=== PATIENT | male | born 1950 | race Hispanic/Latino ===

== ENCOUNTER 2023-02-02 10:13 | Emergency (ER) | payer BC, OTHER, SELFPAY ==
--- OUTSIDE RECORDS SUMMARY | 2023-02-02 10:16 | XMS REPORT | Continuity of Care Document ---
:1950 Author Organization [facility] t Address [address] [place] [address] [address] [place] [address] Care Team Providers Name Role Phone Silverio Placsencia MD Primary Care Physician Alejo DORADO, Geraldo Calderon Attending Clinician Lili Ramirez Attending Clinician Unavailable Provider , Not In System Attending Clinician Unavailable Silverio Plascencia MD Attending Clinician Payers Payer Name Policy Type Policy Number Effective Date Expiration Date S ource Problems This patient has no known problems. Allergies, Adverse Reactions, Alerts This patient has no known allergies or adverse reactions. Family History Family Member Diagnosis Comments Start Date Stop Date Source Paternal grandmother Pancreatic cancer [facility] Natural mother Pancreatic cancer Met [facility] Social History Social Habit Start Date Stop Date Quantity Comments Source [facility] Cigarettes smoked 2023-01-08 2023-01-[address] current (pack per 00:00:00 00:00:00 [facility] ) - Reported Cigarette 2023-01-08 2023-01-08 [facility] Tobacco use and 2023-01-08 2023-01-08 Smokeless [facility] exposure 00:00:00 00:00:00 tobacco non-user Hospital Alcohol intake 2023-01-08 2023-01-08 Current drinker [facility] 00:00:00 00:00:00 of alcohol Hospital (finding) History of Social 2023-01-08 2023-01-[address] function 00:00:00 00:00:00 Hospital Alcohol Comment 2023-01-08 2023-01-08 Consume 2 [facility] 00:00:00 00:00:00 glasses wine per Hospital month History of tobacco 1968-10-20 1992-07-12 Current smoker [facility] use 00:[facility]:00 00:00:00 Hospital Sex Assigned At [birth year] [facility] 00[facility] Smoking Status Start Date Stop Date Source Ex-smoker 2023-01-08 00:00:00 2023-01-08 00:00:00 [facility] Medications Ordered Filled Start Stop Current Ordering Indication Dosage Frequency Signature Comments Components Source Medication Medication Date Date Medication? Clinician (SIG) Name Name aspirin Yes [facility] (Parveen Low -28 st Dose 08:14: Hospita Aspirin) 81 27 l MG enteric coated tablet carvediloL Yes [facility] (COREG) -20 st 3.125 MG 00:00: Hospita tablet 00 l levothyroxi Yes [facility] ne [facility] (SYNTHROID) 00:00: Hospit a 50 mcg 00 l tablet losartan Yes [facility] (COZAAR) [facility] 100 MG 00:00: Hospita tablet 00 l pravastatin Yes [facility] (PRAVACHOL) 9-20 st 40 mg 00:00: Hospita tablet 00 l Xigduo XR 0 Yes [facility] 10-1,000 mg 9-20 st tablet, IR 00:00: Hospita & ER, 00 l biphasic 24hr OneTouch Yes [facility] Verio Flex 9-20 st meter misc 00:00: Hospita 00 l OneTouch 2022-0 Yes [facility] Verio test 9-[facility] st strips 00:00: Hospita strip test 00 l strips Vital Signs Vital Name Observation Time Observation Value Comments Source Systolic blood 2023-01-08 13:15:00 149 mm[Hg] [facility] pressure Diastolic blood 2023-01-08 13:15:00 83 mm[Hg] [facility] pressure Heart rate 2023-01-08 13:15:00 89 /min [facility] Body temperature 2023-01-08 13:15:00 36.44 Oksana [facility] Respiratory rate 2023-01-08 13:15:00 14 /min [facility] Body height 2023-01-08 13:15:00 172.7 cm [facility] Body weight 2023-01-08 13:15:00 96.163 kg [facility] BMI 2023-01-08 13:15:00 32.23 kg/m2 [facility] Oxygen saturation in 2023-01-08 13:15:00 92 /min [facility] Arterial blood by Pulse oximetry Procedures Procedure Date / Time Performed Performing Clinician Sourc e CT HEART SCAN PLUS W 2023-01-01 18:49:10 [facility] PHYSICIAN ORDER US VASCULAR SCREENING 2023-01-01 18:30:00 [facility] HEART SCAN PLUS US VASCULAR SCREENING 2023-01-01 00:00:00 Provider, Not In [facility] HEART SCAN PLUS System Plan of Care Planned Activity Planned Date Details Comments Source Future Scheduled 2023-01-30 Screening for [facility] Test 07:17:42 malignant neoplasm of colon (procedure) [code = 855898829] Future Scheduled 2023-01-30 Screening for [facility] Test 07:17:42 malignant neoplasm of colon (procedure) [code = 166723340] Future Scheduled 2023-01-30 Screening for [facility] Test 07:17:42 malignant neoplasm of colon (procedure) [code = 745551056] Future Scheduled 2023-01-30 65+ PNEUMOCOCCAL [facility] Test 07:17:42 VACCINE (1 - PCV) [code = 65+ PNEUMOCOCCAL VACCINE (1 - PCV)] Future Scheduled 2023-01-30 Hepatitis C screening [facility] Test 07:17:42 (procedure) [code = 127701290] Future Scheduled 2023-01-30 Screening for [facility] Test 07:17:42 malignant neoplasm of colon (procedure) [code = 637009473] Future Scheduled 2023-01-30 Screening for [facility] Test 07:17:42 malignant neoplasm of colon (procedure) [code = 503196808] Future Scheduled 2023-01-30 SHINGLES VACCINES ([address] [facility] Test 07:17:42 of 2) [code = SHINGLES VACCINES (1 of 2)] Future Scheduled 2023-01-30 RSV VACCINES > 60 YR [facility] Test 07:17:42 (1 - 1-dose 60+ series) [code = RSV VACCINES > 60 YR (1 - 1-dose 60+ series)] Future Scheduled 2023-01-30 COVID-19 VACCINE (4 - [facility] Test 07:17:42 season) [code = COVID-19 VACCINE ( season)] Future Scheduled 2023-01-30 INFLUENZA VACCINE (#1) [facility] Test 07:17:42 [code = INFLUENZA VACCINE (#1)] Encounters Start End Encounter Admission Attending Care Care Encounter Source Date/Time Date/Time Type Type Clinicians Facility Department ID 2023-01-08 2023-01-08 Office Alejo 1.2.840.1 [id number] [facility] 08:30:00 09:34:13 Visit Geraldo Calderon [id number] 3.430.2.7 Hospit a .3.907568 l .8 2023-01-08 2023-01-08 Telephone Alejo 1.2.840.1 [id number] [facility] 00:00:00 00:00:00 Geraldo Calderon [id number] 3.430.2.7 Hospit a .3.319509 l .8 2023-01-08 2023-01-08 Outpatient ALEJO [facility] [id number] [address] [place] 00:00:00 00:00:[address] 2023-01-02 2023-01-02 Telephone James 1.2.840.1 [id number] [facility] 00:00:00 00:00:[address] 3.430.2.7 Hospit a .3.813473 l .8 2023-01-02 2023-01-02 Orders Tammi 1.2.840.1 [id number] [facility] 00:00:00 00:00:00 Only Not In 19467.1.[address] System 3.430.2.7 Hospit a .3.075814 l .8 2023-01-01 2023-01-01 [facility], 1.2.840.1 [id number] [facility] 12:31:07 23:59:00 Encounter Silverio 47744.1.[address] 3.430.2.7 Hospit a .3.950479 l .8 2023-01-01 2023-01-01 [facility], 1.2.840.1 [id number] [facility] 12:31:00 12:31:00 Encounter Silverio [address]334.1.[address] 3.430.2.7 Hospit a .3.141712 l .8 2023-01-01 2023-01-01 Outpatient [facility] [id number] [address] [place] 00:00:00 00:00:00 SILVERIO [address] 2023-01-01 2023-01-01 Outpatient [facility] [id number] [address] [place] 00:00:00 00:00:00 SILVERIO [address] 2022-12-24 2022-12-24 Transcribe [facility] 1.2.840.1 [id number] [facility] 00:00:00 00:00:00 Orders Silverio [address]494.1.[address] 3.430.2.7 Hospit a .3.277266 l .8 Results This patient has no known results.
[2023-02-02 10:53] LABS: Hematocrit 43.1 % (39.6-49.0); Lymphocytes % 20.8 % (15.3-44.8); MCV 84.4 fL (80-100); MPV 7.1 fL (7.6-11.3); Platelets 272 thou/uL (152-406); RBC Red Blood Cell Count 5.11 M/uL (4.33-5.43)
[2023-02-02 10:54] LABS: Absolute Lymphocytes (CBC) 2.3 K/uL (0.7-4.9)
[2023-02-02 11:11] LABS: Potassium 3.8 mEq/L (3.5-5.1)
[2023-02-02 11:14] LABS: Troponin High Sensitivity 330.4 pg/mL (<58.9)
[2023-02-02] MEDS ORDERED: ASPIRIN 325 MG TAB ONE (11:56)
--- NOTE | 2023-02-02 13:07 | RAD REPORT ---
EXAM DESCRIPTION: CT - Chest For Pe Angio - 02/02/2023 11:52 am CLINICAL HISTORY: SOB COMPARISON: No comparisons TECHNIQUE: Thin axial CT images of the chest were obtained following administration of 100 mL mL Iso aida 370 IV contrast. Multiplanar reconstructions, and maximum intensity projection reconstructions we re generated and reviewed. Exam utilizes a protocol for optimal evaluation of pulmonary arterial tree . All CT scans are performed using dose optimization technique as appropriate and may include automated exposure control or mA/KV adjustment according to patient size. FINDINGS: Right hilar and superior mediastinal mass, measuring up to 5.7 x 4.8 cm at its superior as pect, occluding the right upper lobe bronchial branches, and markedly narrowing the right pulmonary a rtery branches posteriorly with possible occlusion of some of the anterior upper lobe branches. There is contiguous right upper lobe consolidation, difficult to assess whether it has any masslike compon ents given the early timing of contrast, although there appears to be a crescentic masslike anterior right upper lobe subpleural opacity measuring 7.3 x 3.5 cm. Other bulky mediastinal lymph nodes including an infrahilar 4.7 x 3.1 cm ronnie mass, subcarinal 3.7 x 2.5 cm mass, and other mildly enlarged pretracheal, AP window, prevascular, and left hilar lymph nod es, largest measuring 12 millimeter in short axis in the prevascular zone, and 13 millimeter in short axis in the left hilum. Pulmonary arteries otherwise show no filling defects or other suspicious finding. No acute or signifi cant aorta findings. No pneumothorax. A large right pleural effusion. Additional dependent airspace opacification in the r ight lower lobe could be atelectatic. No chest wall mass or abnormal axilliary lymphadenopathy. Evaluation of the upper abdominal structures shows no suspicious abnormalities. No suspicious osseous lesion. Mass effect upon the superior vena cava. The trachea is deviated to the left. Mild pericardi al effusion. IMPRESSION: No evidence of acute central pulmonary emboli. Right hilar mass contiguous with upper mediastinal masslike soft tissue density or bulky adenopathy, and possibly contiguous with masslike soft tissue densities in the right upper lobe. Additional perip heral subpleural anterior right upper lobe masslike opacity as detailed above. Bulky adenopathy throu ghout the mediastinum and right infrahilar region, as well as small lymph nodes throughout the remain isabel of the mediastinum and left hilum. Findings suggest malignancy, either of along or ronnie origin. Given the appearance of marked narrowin g of branches of the right pulmonary artery to the upper lobe, lymphoma should be considered. Large right pleural effusion with additional dependent right lower lobe airspace opacification. Other findings as detailed above.
--- NOTE | 2023-02-02 13:28 | EDPHYS ---
Physician Documentation [facility] Name: Igor Vargas Age: 72 yrs Sex: Male : 1950 Arrival Date: 02/02/2023 Time: 10:13 Bed 4 Private MD: ED Physician Oziel Dejesus HPI: 02/02 10:31 This 72 yrs old Male presents to ER via Ambulatory with complaints of ec2 Shortness Of Breath. 10:31 Patient arrives today due to concern for shortness of breath. Patient complains of ec2 orthopnea, states that sitting upright helps improve her shortness of breath. Reports no history of heart failure, not on a diuretic, states he has had a previous CT of the heart that showed no significant abnormalities. States that he has a primary care doctor and was told to come to the ED to evaluate for PE. Patient reports occasional exertional shortness of breath, denies any lower extremity edema reports no chest pain. Patient reports he is not on a blood thinner. Patient reports history of hypertension as well as diabetes. Patient states that he has had outpatient work-up and was told he has a lung nodule as well as lymphadenopathy. . Historical: - PMHx: 10:24 Diabetes mellitus; Hypertensive disorder; Hypercholesterolemia; iw - Immunization history:: Adult Immunizations up to date. - Social history:: Smoking status: Patient/guardian denies using tobacco. ROS: 10:31 Constitutional: sob ec2 Exam: 10:31 Constitutional: GEN: NAD Head: atraumatic Eyes: EOMI Ears: External ears are ec2 normal. CV: regular rate, no lower extremity edema LUNGS: no respiratory distress, no focal areas of deficits ABD: non-distended SKIN: no evidence of rashes MSK: no evidence of trauma NEURO: moves all extremities equally Vital Signs: 10:20 BP 157 / 93; Pulse 87; Resp 16; Temp 97.9; Pulse Ox 97% on R/A; iw 10:30 BP 159 / 92; Pulse 87; Resp 18; Pulse Ox 95% ; ko1 11:00 BP 151 / 86; Pulse 82; Resp 18; Pulse Ox 96% ; ko1 11:30 BP 150 / 89; Pulse 81; Resp 16; Pulse Ox 96% ; ko1 12:00 BP 164 / 80; Pulse 86; Resp 16; Pulse Ox 96% ; ko1 13:30 BP 154 / 87; Pulse 84; Resp 16; Pulse Ox 97% ; db MDM: 10:19 Patient medically screened. ec2 10:31 ED course: Patient arrives today due to concern for progressive shortness of breath. ec2 Examination remarkable for well-appearing nontoxic dividual was otherwise in no acute distress. Will obtain lab work, EKG, CT scan of the chest. Currently considered process such as atypical ACS, CHF, PE. . 10:51 ED course: EKG independently reviewed and interpreted by me, shows normal sinus rhythm, ec2 rate of 82, no acute ST segment elevations, intervals are pertinent for QTc prolongation with a QTc of 560.. 11:28 ED course: Patient's metabolic profile is reassuring with slight hyperglycemia noted at ec2 200, CBC shows reassuring blood counts, BNP minimally elevated at 930, troponin markedly elevated at 330. . 11:28 ED course: EKG does not have any evidence of acute ischemia, will give the patient a ec2 full dose of aspirin.. 13:12 ED course: CT scan of the chest shows likely malignancy, also shows large right-sided ec2 pleural effusion with associated opacification. I will give the patient antibiotics for possible superimposed infectious process ongoing. . 13:31 Data reviewed: vital signs. ec2 02/02 10:30 Order name: Basic Metabolic Panel; Complete Time: 11:15 ec2 02/02 10:30 Order name: CBC with Diff; Complete Time: 11:15 ec2 02/02 10:30 Order name: NT PRO-BNP; Complete Time: 11:15 ec2 02/02 10:30 Order name: Troponin HS; Complete Time: 11:15 ec2 02/02 10:30 Order name: CT Chest For PE Angio; Complete Time: 13:10 ec2 02/02 10:30 Order name: EKG; Complete Time: 10:31 ec2 02/02 10:30 Order name: Cardiac monitoring; Complete Time: 10:34 ec2 02/02 10:30 Order name: EKG - Nurse/Tech; Complete Time: :43 ec2 02/02 10:30 Order name: IV Saline Lock; Complete Time: 10:43 ec2 02/02 10:30 Order name: Labs collected and sent; Complete Time: 10:43 ec2 02/02 10:30 Order name: O2 Per Protocol; Complete Time: 10:34 ec2 02/02 10:30 Order name: O2 Sat Monitoring; Complete Time: 10:34 ec2 Administered Medications: 12:06 Drug: Aspirin PO 325 mg PO once Route: PO; ko1 14:27 Follow up: Response: No adverse reaction ko1 13:56 Drug: Rocephin IV 1 grams IV at calculated rate once; Given slow IV push per pharmacy ap3 instructions Route: IV; Rate: calculated rate; Site: right antecubital; 14:27 Follow up: Response: No adverse reaction; IV Status: Completed infusion; IV Intake: ko1 100ml 14:10 Drug: AZITHromycin IVPB 500 mg IVPB once over 1 hrs; (mix in 250 mL NS) Route: IVPB; ko1 Infused Over: 1 hrs; Site: right antecubital; Disposition Summary: 02/02/23 13:28 Discharge Ordered Condition: Stable ec2 Diagnosis - Mediastinal Mass ec2 - Pleural Effusion ec2 - Shortness of Breath ec2 - Troponinemia ec2 - Lung mass ec2 Discharge Instructions: - Discharge Summary Sheet ec2 - Shortness of Breath, Adult ec2 - Lung Mass ec2 Forms: - Medication Reconciliation Form ec2 - Thank You Letter ec2 - Antibiotic Education ec2 - Prescription Opioid Use ec2 - Patient Portal Instructions ec2 - Leadership Thank You Letter ec2 Signatures: Dispatcher [employer] Sunita Oseguera RN RN iw Prokisch, Amanda, RN RN ap3 Maris Lopez RN RN ko1 Oziel Dejesus MD MD ec2 Corrections: (The following items were deleted from the chart) 10:33 10:31 Patient arrives today due to concern for shortness of breath. Patient complains ec2 of orthopnea, states that sitting upright helps improve her shortness of breath. Reports no history of heart failure, not on a diuretic, states he has had a previous CT of the heart that showed no significant abnormalities. States that he has a primary care doctor and was told to come to the ED to evaluate for PE. Patient reports occasional exertional shortness of breath, denies any lower extremity edema reports no chest pain. Patient reports he is not on a blood thinner. Patient reports history of hypertension as well as diabetes.. ec2
--- NOTE | 2023-02-02 13:28 | ER ---
Nurse's Notes [facility] Name: Igor Vargas Age: 72 yrs Sex: Male : 1950 Arrival Date: 02/02/2023 Time: 10:13 Bed 4 Private MD: Diagnosis: Mediastinal Mass;Pleural Effusion;Shortness of Breath;Troponinemia ;Lung mass Presentation: 02/02 10:20 Chief complaint: Patient states: SOB , dyspnea going on for a month, got bad on iw , was sent by Dr. Plascencia , pain under right shoulder blade. Coronavirus screen: At this time, the client does not indicate any symptoms associated with coronavirus-19. Ebola Screen: Patient negative for fever greater than or equal to 101.5 degrees Fahrenheit, and additional compatible Ebola Virus Disease symptoms Patient denies exposure to infectious person. Patient denies travel to an Ebola-affected area in the 21 days before illness onset. No symptoms or risks identified at this time. Initial Sepsis Screen: Does the patient meet any 2 criteria? No. Patient's initial sepsis screen is negative. Does the patient have a suspected source of infection? No. Patient's initial sepsis screen is negative. Risk Assessment: Do you want to hurt yourself or someone else? Patient reports no desire to harm self or others. Onset of symptoms was January 31, 2023. 10:20 Method Of Arrival: Ambulatory iw 10:20 Acuity: LORETTA 3 iw Historical: - PMHx: 10:24 Diabetes mellitus; Hypertensive disorder; Hypercholesterolemia; iw - Immunization history:: Adult Immunizations up to date. - Social history:: Smoking status: Patient/guardian denies using tobacco. Screenin:30 [facility] ED Fall Risk Assessment (Adult) History of falling in the last 3 months, ko1 including since admission No falls in past 3 months (0 pts) Confusion or Disorientation No (0 pts) Intoxicated or Sedated No (0 pts) Impaired Gait No (0 pts) Mobility Assist Device Used No (0 pt) Altered Elimination No (0 pt) Score/Fall Risk Level 0 - 2 = Low Risk Oriented to surroundings, Maintained a safe environment, Educated pt \T\ family on fall prevention, incl call for assistance when getting out of bed, Assessed \T\ reinforced patient's understanding of fall precautions, Provided non-skid footwear, Hourly rounding (assess needs \T\ fall precautionary measures) done, Used ambulatory aids as needed (educated on \T\ assisted with), Used gait belt as appropriate. Abuse screen: Denies threats or abuse. Denies injuries from another. Nutritional screening: No deficits noted. Tuberculosis screening: No symptoms or risk factors identified. Assessment: 10:30 General: Appears in no apparent distress. comfortable, Behavior is calm, cooperative, ko1 appropriate for age. Pain: Denies pain. Neuro: No deficits noted. Cardiovascular: Rhythm is regular. Respiratory: Airway is patent Respiratory effort is even, unlabored, Breath sounds are clear bilaterally. Respiratory: Reports shortness of breath at rest. GI: No deficits noted. : No deficits noted. EENT: No deficits noted. Derm: No deficits noted. Musculoskeletal: No deficits noted. Vital Signs: 10:20 BP 157 / 93; Pulse 87; Resp 16; Temp 97.9; Pulse Ox 97% on R/A; iw 10:30 BP 159 / 92; Pulse 87; Resp 18; Pulse Ox 95% ; ko1 11:00 BP 151 / 86; Pulse 82; Resp 18; Pulse Ox 96% ; ko1 11:30 BP 150 / 89; Pulse 81; Resp 16; Pulse Ox 96% ; ko1 12:00 BP 164 / 80; Pulse 86; Resp 16; Pulse Ox 96% ; ko1 13:30 BP 154 / 87; Pulse 84; Resp 16; Pulse Ox 97% ; db ED Course: 10:16 Patient arrived in ED. mg5 10:19 Oziel Dejesus MD is Attending Physician. ec2 10:22 Triage completed. iw 10:24 Arm band placed on. iw 10:30 Patient has correct armband on for positive identification. Provided Education on: na. ko1 Pulse ox on. NIBP on. 10:30 Inserted saline lock: 22 gauge in right antecubital area, using aseptic technique. ko1 Blood collected. 10:44 Basic Metabolic Panel Sent. ko1 10:44 CBC with Diff Sent. ko1 10:44 NT PRO-BNP Sent. ko1 10:44 Troponin HS Sent. ko1 11:00 Maris Lopez, RN is Primary Nurse. ko1 11:54 CT Chest For PE Angio In Process Unspecified. EDMS 14:53 No provider procedures requiring assistance completed. IV discontinued, intact, ko1 bleeding controlled, No redness/swelling at site. Pressure dressing applied. Administered Medications: 12:06 Drug: Aspirin PO 325 mg PO once Route: PO; ko1 14:27 Follow up: Response: No adverse reaction ko1 13:56 Drug: Rocephin IV 1 grams IV at calculated rate once; Given slow IV push per pharmacy ap3 instructions Route: IV; Rate: calculated rate; Site: right antecubital; 14:27 Follow up: Response: No adverse reaction; IV Status: Completed infusion; IV Intake: ko1 100ml 14:10 Drug: AZITHromycin IVPB 500 mg IVPB once over 1 hrs; (mix in 250 mL NS) Route: IVPB; ko1 Infused Over: 1 hrs; Site: right antecubital; Medication: 10:30 VIS not applicable for this client. ko1 Intake: 14:27 IV: 100ml; Total: 100ml. ko1 Outcome: 13:28 Discharge ordered by . ec2 14:53 Discharged to home ambulatory, with family, ko1 14:53 Condition: improved 14:53 Discharge instructions given to patient, family, Instructed on discharge instructions, follow up and referral plans. Demonstrated understanding of instructions, follow-up care, 14:54 Patient left the ED. ko1 Signatures: Dispatcher [employer] Sunita Oseguera RN RN Sandi Sims RN RN ap3 Maris Lopez RN RN ko1 Roxy Velez RN RN [facility]5 Oziel Dejesus MD MD ec2 Corrections: (The following items were deleted from the chart) 10:24 10:20 Chief complaint: Patient states: SOB , dyspnea going on for a month, got bad on , was sent by Dr. Plascencia , pain under right shoulder blade iw
[2023-02-02] MEDS ORDERED: AZITHROMYCIN 500 MG INJ IVPB ONE (13:50)
[2023-02-02] MEDS ORDERED: NA CHLORIDE 0.9% 50 ML ONE (13:50)
[2023-02-02] MEDS ORDERED: NA CHLORIDE 0.9% 250 ML ONE (13:50)
[2023-02-02] MEDS ORDERED: CEFTRIAXONE 1000 MG/VIAL ONE (13:50)
--- NOTE | 2023-02-03 11:58 | EKG ---
Test Date: 2023-02-02 Test Time: 10:45:06 [place] Tester: ALICIA MEASUREMENT RESULTS: Intervals: Rate: 82 CO: 166 QRSD: 104 QT: 480 QTc: 560 [place]: P: 18 CO: 166 QRS: -33 T: 17 INTERPRETIVE STATEMENTS: Normal sinus rhythm Possible Left atrial enlargement Left axis deviation Nonspecific ST and T wave abnormality Prolonged QT Abnormal ECG No previous ECG available for comparison Electronically Signed On 02-03-23 11:54:33 CDT by Vinicius Pierre
== END 2023-02-02 14:54 | disposition home or self-care (01) ==
LOC: ER 10:13
DX: J90 Pleural effusion, not elsewhere classified (principal); J98.59 Other diseases of mediastinum, not elsewhere classified; R91.8 Other nonspecific abnormal finding of lung field; R77.8 Other specified abnormalities of plasma proteins; E11.9 Type 2 diabetes mellitus without complications; I10 Essential (primary) hypertension
CPT/HCPCS: 96365; 93005; 85025; 80048; 36415; 84484; 83880; 71275; 96375; 99284; Q9967; J7050; J0696

== ENCOUNTER 2023-02-17 20:10 | Emergency (ER) | payer OTHER ==
--- OUTSIDE RECORDS SUMMARY | 2023-02-17 20:13 | XMS REPORT | Continuity of Care Document ---
:1950 Author Organization [facility] t Address [address] [facility] [address] [place] [address] Care Team Providers Name Role Phone Mona Plascencia MD Primary Care Physician Jourdan Shelton MD Attending Clinician Brett Gomez MD Attending Clinician Hernesto Gonzalez MD Attending Clinician [phone] Renae Gonzalez MD Attending Clinician Larisa Medina MD Attending Clinician Provider, Unknown Attending Clinician Unavailable Jr Silver MD Attending Clinician Provider MD, Not In System Attending Clinician Unavailable Alejo DORADO, Geraldo Calderon Attending Clinician Lili Ramirez Attending Clinician Unavailable Mona Plascencia MD Attending Clinician HERNESTO GONZALEZ Admitting Clinician Unavailable Payers Payer Name Policy Type Policy Number Effective Date Expiration Date S ource Problems Condition Condition Condition Status Onset Resolution Last Treating Co mments Source Name Details Category Date Date Treatment Clinician Date Metastasis Metastasis Disease Active 2022-04 M ethodi to bone to bone 1-06 st 00:00: Hospita 00 l 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 Family History Family Member Diagnosis Comments Start Date Stop Date Source Natural mother Pancreatic cancer Met [facility] Paternal grandmother Pancreatic cancer [facility] Social History Social Habit Start Date Stop Date Quantity Comments Source Sexual orientation Method [facility] Alcohol intake 2023-02-16 2023-02-16 Current drinker Metho dist 00:00:00 00:00:00 of [facility] (finding) History of Social 2023-02-16 2023-02-[address] function 00:00:00 00:00:00 Hospital Cigarettes smoked 2023-01-08 2023-01-[address] current (pack per 00:00:00 00:00:00 Hospita l day) - Reported Cigarette 2023-01-08 2023-01-08 Sikh pack-years 00:00:00 00:00:00 Hospital Tobacco use and 2023-01-08 2023-01-08 Smokeless Sikh exposure 00:00:00 00:00:00 tobacco non-user [facility] Alcohol Comment 2023-01-08 2023-01-08 Consume 2 Sikh 00:00:00 00:00:00 glasses wine per Hospital month History of tobacco 1968-10-20 1992-07-12 Cigarette Smoker Sikh use 00:00:00 00:00:00 Hospital Sex Ass[birth year] At [birth year] Sikh 00:00:00 00:00:00 Hospital Smoking Status Start Date Stop Date Source Ex-smoker 2023-01-08 00:00:00 2023-01-[facility] Start Stop Current Ordering Indication Dosage Frequency Signature Comments Components Source Medication Medication Date Date Medication? Clinician (SIG) Name Name multivitami 2022-04 Yes 1{tbl} QD Take 1 Me thodi n tablet 1-[address] 15:10: mouth Hospita 03 daily. l vit 2022-04 Yes 1{tbl} QD Take 1 Methodi C/E/Zn/ole 1-[address] r/lutein/ze 15:10: mouth Hospi ta axan 03 daily. l (PRESERVISI ON AREDS-2 ORAL) cholecalcif 2022-04 Yes 1000U QD Take 1 Met hodi lashon, 1-[address] vitamin D3, 15:10: (1,000 Hosp [facility] 1,000 unit 03 Units l tablet total) by mouth daily. ascorbic 2022-04 Yes 100mg Q.5D Take 1 Method i acid, 1-[address] vitamin C, 15:10: (100 mg Hosp [facility] (vitamin C) 03 total) by l 100 MG mouth 2 tablet (two) times a day. ZINC ORAL 2022-04 Yes 30mg QD Take 30 mg Me thodi 1-[address] 15:10: daily. Hospita 03 Gummies l calcium 2022-04 Yes 1200mg Q.5D Take 1,200 Me thodi carbonate 1-[address] (CALCIUM 15:10: mouth 2 Hospit a 600 ORAL) 03 (two) l times a day. aspirin 2022-04 Yes Methodi (Parveen Low 04 st Dose 15:10: Hospita Aspirin) 81 54 l MG enteric coated tablet metoprolol 2022-04- Yes 25mg Q.5D Take 1 Meth sarah tartrate 04-16 tablet (25 st (LOPRESSOR) 00:00: 05:59 mg total) Hospita 25 mg 00 :00 by mouth 2 l tablet (two) times a day for 30 days. ondansetron 2022-04- Yes [id number] 8mg Q8H Dissolve 1 Methodi ODT 04-13 tablet (8 st (ZOFRAN-ODT 00:00: 05:59 mg total) Hospita ) 8 MG 00 :00 on the l disintegrat tongue ing tablet every 8 (eight) hours as needed for nausea or vomiting for up to 30 days. prochlorper 2022-04- Yes 5mg Q6H Take 1 Met hodi azine 04-13 tablet (5 st (Compazine) 00:00: 05:59 mg total) Hospita 5 MG tablet 00 :00 by mouth l every 6 (six) hours as needed for nausea or vomiting for up to 30 days. aspirin 0 Yes Methodi (Parveen Low - st Dose 08:14: Hospita Aspirin) 81 27 l MG enteric coated tablet carvediloL 0 Yes Methodi (COREG) -20 st 3.125 MG 00:00: Hospita tablet 00 l levothyroxi 0 Yes Method i ne 9-20 st (SYNTHROID) 00:00: Hospit a 50 mcg 00 l tablet losartan 0 Yes Methodi (COZAAR) 12-31 st 100 MG 00:00: Hospita tablet 00 l pravastatin 0 Yes Method i (PRAVACHOL) 12-31 st 40 mg 00:00: Hospita tablet 00 l Xigduo XR 0 Yes Methodi 10-1,[address] tablet, IR 00:00: Hospita & ER, 00 l biphasic 24hr OneTouch 0 Yes Methodi Verio Flex 9-20 st meter misc 00:00: Hospita 00 l OneTouch 0 Yes Methodi Verio test -20 st strips 00:00: Hospita strip test 00 l strips levothyroxi 0 Yes 25ug QD Take 25 Met hodi ne 9-[address] (SYNTHROID) 00:00: mouth Hospi ta 50 mcg 00 every l tablet morning. pravastatin 0 Yes 40mg QD Take 1 Meth sarah (PRAVACHOL) 9-20 tablet (40 st 40 mg 00:00: mg total) Hospita tablet 00 by mouth l daily. OneTouch 0 Yes Methodi Verio Flex 9-20 st meter misc 00:00: Hospita 00 l OneTouch 2022-0 Yes Methodi Verio test 9-20 st strips 00:00: Hospita strip test 00 l strips carvediloL 2022-0 2022- No 3.125mg Q.5D Take 1 M ethodi (COREG) 12-31 11-[address] 3.125 MG 00:00: 00:00 (3.125 mg Hos janet tablet 00 :00 total) by l mouth 2 (two) times a day with meals. losartan 2022-0 2023- No 100mg QD Take 1 Metho di (COZAAR) 9-20 11-[address] 100 MG 00:00: 00:00 (100 mg Hospita tablet 00 :00 total) by l mouth daily. Xigduo XR 2022- No QD daily. Metho di 10-1,000 mg 12-31 st tablet, IR 00:00: 00:00 Hospit a & ER, 00 :00 l biphasic 24hr Vital Signs Vital Name Observation Time Observation Value Comments Source Systolic blood 2023-02-16 20:21:00 175 mm[Hg] Method ist Hospital pressure Diastolic blood 2023-02-16 20:21:00 82 [facility]Hg[facility] Heart rate 2023-02-16 20:21:00 85 /min [facility] Body temperature 2023-02-16 20:21:00 36.83 Oksana [facility] Respiratory rate 2023-02-16 20:21:00 17 /min [facility] Body height 2023-02-16 20:21:00 172.7 cm [facility] Body weight 2023-02-16 20:21:00 95.482 kg [facility] BMI 2023-02-16 20:21:00 32.01 kg/m2 [facility] Oxygen saturation in 2023-02-16 20:21:00 96 /min [facility] Arterial blood by Pulse oximetry Systolic blood 2023-01-08 13:15:00 149 mm[Hg] Method [facility] Hospital pressure Diastolic blood 2023-01-08 13:15:00 83 mm[Hg] [facility] pressure Heart rate 2023-01-08 13:15:00 89 /min [facility] Body temperature 2023-01-08 13:15:00 36.44 Oksana [facility] Respiratory rate 2023-01-08 13:15:00 14 /min [facility] Body height 2023-01-08 13:15:00 172.7 cm [facility] Body weight 2023-01-08 13:15:00 96.163 kg [facility] BMI 2023-01-08 13:15:00 32.23 kg/m2 [facility] Oxygen saturation in 2023-01-08 13:15:00 92 /min [facility] Arterial blood by Pulse oximetry Procedures Procedure Date / Time Performing Clinician Source Performed POC GLUCOSE 2023-02-14 17:51:00 Renae Gonzalez spital XR CHEST 1 VW PORTABLE 2023-02-14 14:36:27 Camron Ruvalcaba [facility] POC GLUCOSE 2023-02-14 13:26:00 Renae Gonzalez Ho spital PHOSPHORUS LEVEL 2023-02-14 09:24:[address] [facility] MAGNESIUM LEVEL 2023-02-14 09:24:00 [facility] WITH PLATELET AND 2023-02-14 09:24:00 Marquise Monique [facility] COMPREHENSIVE METABOLIC 2023-02-14 09:24:00 Marquise Monique [facility] ESTIMATED GFR 2023-02-14 09:24:00 Renae Gonzalez Ho spital POC GLUCOSE 2023-02-14 02:31:00 Renae Gonzalez Ho spital PLACEMENT OLIVE SHUNT 2023-02-13 23:30:00 [facility] 2023-02-13 22:08:00 Renae Gonzalez spital XR CHEST 1 VW PORTABLE 2023-02-13 20:59:35 Live [facility] Rj BASIC METABOLIC PANEL 2023-02-13 20:41:00 Monique Camarillo [facility] MAGNESIUM LEVEL 2023-02-13 20:41:00 [facility] PHOSPHORUS LEVEL 2023-02-13 20:41:[address] [facility] ESTIMATED GFR 2023-02-13 20:41:00 Renae Gonzalez Ho spital POC GLUCOSE 2023-02-13 19:11:00 Renae Gonzalez spital XR CHEST 1 VW PORTABLE 2023-02-13 19:06:59 Camron Ruvalcaba [facility] CBC WITH PLATELET AND 2023-02-13 07:18:00 Deb Bert [facility] DIFFERENTIAL MAGNESIUM LEVEL 2023-02-13 07:18:[address] [facility] spital PHOSPHORUS LEVEL 2023-02-13 07:18:00 [facility] ospital COMPREHENSIVE METABOLIC 2023-02-13 07:18:00 [facility] Bert [facility] PANEL PROTHROMBIN TIME WITH INR 2023-02-13 07:18:00 Live Landers [facility] Rj VANCOMYCIN LEVEL, RANDOM 2023-02-13 07:18:00 [facility] [place] OSMOLALITY, SERUM 2023-02-13 07:18:00 Dev, [facility] BETA HYDROXYBUTYRATE 2023-02-13 07:18:00 Dev, [facility] ESTIMATED GFR 2023-02-13 07:18:00 Renae Gonzalez spital OSMOLALITY, URINE 2023-02-13 07:17:00 Dev, [facility] SODIUM LEVEL, URINE, 2023-02-13 07:17:00 Dev, [facility] RANDOM LACTIC ACID LEVEL - NOW 2023-02-13 07:17:00 [facility] AND REPEAT 2X EVERY 3 [place] HOURS VENOUS BLOOD GAS 2023-02-13 07:17:00 Dev, [facility] ospital METHICILLIN-RESISTANT 2023-02-13 03:56:00 [facility] STAPHYLOCOCCUS AUREUS [facility] (MRSA), KYRA LACTIC ACID LEVEL - NOW 2023-02-13 03:45:00 [facility] AND REPEAT 2X EVERY 3 [place] HOURS URINE CULTURE 2023-02-13 03:05:00 [facility] URINALYSIS SCREEN AND 2023-02-13 03:05:00 [facility] MICROSCOPY, WITH REFLEX TO [facility] CULTURE POC GLUCOSE 2023-02-13 02:43:00 Renae Gonzalez spital XR CHEST 1 VW PORTABLE 2023-02-13 01:55:07 Bal Gipson [facility] BLOOD CULTURE, AEROBIC & 2023-02-13 01:06:00 Chiki Boothe [facility] ANAEROBIC [facility] CBC WITH PLATELET AND 2023-02-13 00:50:00 Chiki Boothe [facility] DIFFERENTIAL [facility] COMPREHENSIVE METABOLIC 2023-02-13 00:50:00 Tl [facility] PANEL [facility] LACTIC ACID LEVEL - NOW 2023-02-13 00:50:00 Tl [facility] AND REPEAT 2X EVERY 3 [facility] MAGNESIUM LEVEL 2023-02-13 00:50:00 Chiki Boothe [facility] PHOSPHORUS LEVEL 2023-02-13 00:50:00 Tl Chiki [facility] ESTIMATED GFR 2023-02-13 00:50:00 Tl [facility] PROTHROMBIN TIME WITH INR 2023-02-13 00:50:00 Renae Gonzalez [facility] PARTIAL THROMBOPLASTIN 2023-02-13 00:50:00 Renae Gonzalez [facility] TIME (PTT) POC GLUCOSE 2023-02-13 00:42:00 Renae Gonzalez spital ECG 12-LEAD 2023-02-13 00:33:06 Chiki Boothe [facility] ECG 12-LEAD 2023-02-13 00:27:57 Chiki Boothe [facility] ECG 12-LEAD 2023-02-13 00:22:27 Chiki Boothe [facility] ECG 12-LEAD 2023-02-13 00:10:19 Chiki Boothe [facility] ECG 12-LEAD 2023-02-12 23:59:14 Chiki Boothe [facility] ECG 12-LEAD 2023-02-12 23:57:59 Chiki Boothe [facility] POC GLUCOSE 2023-02-12 22:47:00 Renae Gonzalez spital POC GLUCOSE 2023-02-12 17:55:00 Renae Gonzalez spital XR CHEST 1 VW PORTABLE 2023-02-12 14:45:00 [facility] POC GLUCOSE 2023-02-12 13:30:00 Renae Gonzalez spital CBC WITH PLATELET AND 2023-02-12 06:48:00 Maximilianorust [facility] DIFFERENTIAL MAGNESIUM LEVEL 2023-02-12 06:44:00 Bert Boyd Ho spital PHOSPHORUS LEVEL 2023-02-12 06:44:00 Bert Boyd H ospital COMPREHENSIVE METABOLIC 2023-02-12 06:44:00 [facility]IM[facility] GFR 2023-02-12 06:44:00 Renae Gonzalez Ho spital POC GLUCOSE 2023-02-12 01:50:00 Renae Gonzalez spital POC GLUCOSE 2023-02-11 22:15:00 Renae Gonzalez spital POC GLUCOSE 2023-02-11 17:21:00 Renae Gonzaleztal XR CHEST 1 VW PORTABLE 2023-02-11 14:20:00 [facility] POC GLUCOSE 2023-02-11 13:36:00 Renae Gonzalez spital BASIC METABOLIC PANEL 2023-02-11 08:50:00 [facility] NT-PROBNP 2023-02-11 08:50:00 Peg [facility] Nomaan CBC WITH PLATELET AND 2023-02-11 08:50:00 Deb [facility] DIFFERENTIAL MAGNESIUM LEVEL 2023-02-11 08:50:00 Bert Boyd Ho spital PHOSPHORUS LEVEL 2023-02-11 08:50:00 Bert Boyd H ospital URIC ACID LEVEL 2023-02-11 08:50:00 Bert Boyd spital ESTIMATED GFR 2023-02-11 08:50:00 [facility] POC GLUCOSE 2023-02-11 01:14:00 Renae Gonzalez Ho spital POC GLUCOSE 2023-02-10 23:13:00 Renae Gonzalez Ho spital POC GLUCOSE 2023-02-10 17:54:00 Renae Gonzalez spital XR CHEST 1 VW PORTABLE 2023-02-10 13:59:36 [facility] 2023-02-10 13:39:00 Renae Gonzalez spital PHOSPHORUS LEVEL 2023-02-10 08:28:00 [facility] 2023-02-10 08:28:00 Marquise Monique [facility] CBC WITH PLATELET AND 2023-02-10 08:28:00 Monique Camarillo [facility] DIFFERENTIAL [facility] COMPREHENSIVE METABOLIC 2023-02-10 08:28:00 Marquise [facility] PANEL [facility] NT-PROBNP 2023-02-10 08:28:00 Peg [facility] Nomaan ESTIMATED GFR 2023-02-10 08:28:00 [facility] URIC ACID LEVEL 2023-02-10 08:28:00 [facility] POC GLUCOSE 2023-02-10 02:11:00 Renae Gonzalez spital POC GLUCOSE 2023-02-09 23:31:00 Renae Gonzalez spital IR PORT PLACEMENT 2023-02-09 22:29:00 Deb [facility] POC GLUCOSE 2023-02-09 18:01:00 Renae Gonzalez spital POC GLUCOSE 2023-02-09 17:16:00 Renae Gonzalez spital XR CHEST 1 VW PORTABLE 2023-02-09 16:11:46 Julius [facility] AST (SGOT) 2023-02-09 14:13:00 Renae Gonzalez spital POTASSIUM LEVEL 2023-02-09 14:13:00 Renae Gonzalez spital MRI BRAIN W WO CONTRAST 2023-02-09 12:24:00 Ruthann Montano [facility] POTASSIUM LEVEL 2023-02-09 11:30:00 Renae Gonzalez spital ALT (SGPT) 2023-02-09 11:30:00 Renae Gonzalez spital AST (SGOT) 2023-02-09 11:30:00 Renae Gonzalez spital VENOUS BLOOD GAS 2023-02-09 09:20:00 [facility] PHOSPHORUS LEVEL 2023-02-09 09:03:[address] [facility] MAGNESIUM LEVEL 2023-02-09 09:03:00 Marquise [facility] CBC WITH PLATELET AND 2023-02-09 09:03:00 [facility] DIFFERENTIAL [facility] COMPREHENSIVE METABOLIC 2023-02-09 09:03:00 Marquise [facility] PANEL [facility] NT-PROBNP 2023-02-09 09:03:00 [facility] [place]oma[facility] ESTIMATED GFR 2023-02-09 09:03:00 [facility] POC GLUCOSE 2023-02-09 01:49:00 [facility] HEPATITIS B SURFACE 2023-02-08 22:46:00 [facility]TIGEN HEPATITIS B CORE ANTIBODY 2023-02-08 22:46:00 Joon [facility] TOTAL HEPATITIS B SURFACE 2023-02-08 22:46:00 [facility] ANTIBODY POC GLUCOSE 2023-02-08 22:17:00 [facility] XR CHEST 1 VW PORTABLE 2023-02-08 16:28:17 Annie Madrid [facility] POC GLUCOSE 2023-02-08 16:27:00 [facility] POC GLUCOSE 2023-02-08 13:36:00 [facility] POC GLUCOSE 2023-02-08 12:50:00 [facility] PHOSPHORUS LEVEL 2023-02-08 10:26:[address] [facility] MAGNESIUM LEVEL 2023-02-08 10:26:00 [facility] CBC WITH PLATELET AND 2023-02-08 10:26:00 Monique Camarillo [facility] DIFFERENTIAL [facility] COMPREHENSIVE METABOLIC 2023-02-08 10:26:00 Marquise Monique [facility] PANEL Agu[place]re ESTIMATED GFR 2023-02-08 10:26:00 [facility] POC GLUCOSE 2023-02-08 02:26:00 [facility] POC GLUCOSE 2023-02-07 21:39:00 [facility] LDH 2023-02-07 18:38:00 Dusty [facility] Ho spital CARCINOEMBRYONIC ANTIGEN 2023-02-07 18:38:00 Ruthann Montano [facility] ([facility] POC GLUCOSE 2023-02-07 17:28:00 [facility] XR CHEST 1 VW PORTABLE 2023-02-07 15:21:00 [facility] P[facility]SE 2023-02-07 13:23:00 [facility] CBC WITH PLATELET AND 2023-02-07 10:19:00 [facility] DIFFERENTIAL COMPREHENSIVE METABOLIC 2023-02-07 10:19:00 She [facility] PANEL MAGNESIUM LEVEL 2023-02-07 10:19:[address] [facility] spital PHOSPHORUS LEVEL 2023-02-07 10:19:00 [facility] H ospital ESTIMATED GFR 2023-02-07 10:19:00 [facility] POC GLUCOSE 2023-02-07 01:46:00 [facility] MRI BRAIN WO CONTRAST 2023-02-07 01:16:00 [facility] TTE COMPLETE, WO CONTRAST, 2023-02-06 22:55:31 Beata Camarillo [facility] W DOPPLER ([id number]) [place] POC GLUCOSE 2023-02-06 22:26:00 [facility] XR CHEST 1 VW PORTABLE 2023-02-06 19:27:05 [facility] POC [facility]SE 2023-02-06 17:12:[address] [facility] [place] [address] SKULL BASE TO MID 2023-02-06 16:50:56 Annie Madrid [facility] THIGH SURGICAL PATHOLOGY REQUEST 2023-02-06 15:32:00 [facility] POC GLUCOSE 2023-02-06 14:58:00 [facility] POC GLUCOSE 2023-02-06 13:55:00 [place], [facility] CYTOLOGY 2023-02-06 13:43:00 [facility] (NON-GYNECOLOGICAL) [place] REQUEST RESPIRATORY CULTURE 2023-02-06 13:35:00 [facility] FUNGUS CULTURE 2023-02-06 13:35:00 [place], [facility] AFB CULTURE 2023-02-06 13:35:00 [facility] GRAM STAIN 2023-02-06 13:35:00 [facility] RESPIRATORY PATHOGEN PANEL 2023-02-06 13:35:00 [facility] WITH COVID-19 RT-PCR [place] AF[employer] STAIN 2023-02-06 13:35:00 [facility] [place] AN ELECTIVE 2023-02-06 12:43:00 Jr Silver [facility] ENDOTRACHEAL AIRWAY BRONCHOSCOPY 2023-02-06 12:30:00 Larisa Medina Ho spital POC GLUCOSE 2023-02-06 11:59:00 [facility] CBC WITH PLATELET AND 2023-02-06 10:23:00 Bert Boyd [facility] DIFFERENTIAL COMPREHENSIVE METABOLIC 2023-02-06 10:23:00 Bert Boyd [facility] PANEL MAGNESIUM LEVEL 2023-02-06 10:23:00 Bert Boyd spital PHOSPHORUS LEVEL 2023-02-06 10:23:00 Bert Boyd ospital BETA HYDROXYBUTYRATE 2023-02-06 10:23:00 [facility]C 2023-02-06 10:23:00 Monique Camarillo [facility] ESTIMATED GFR 2023-02-06 10:23:00 [facility] POC GLUCOSE 2023-02-06 02:03:00 [facility] POC GLUCOSE 2023-02-05 22:38:00 [facility] BASIC METABOLIC PANEL 2023-02-05 18:33:00 Monique Camarillo [facility] ESTIMATED GFR 2023-02-05 18:33:00 [facility] POC GLUCOSE 2023-02-05 17:04:00 [facility] POC GLUCOSE 2023-02-05 13:22:00 [facility] XR CHEST 1 VW PORTABLE 2023-02-05 12:30:00 Annie Madrid [facility] BETA HYDROXYBUTYRATE 2023-02-05 12:06:00 Monique Camarillo [facility] CBC WITH PLATELET AND 2023-02-05 10:52:00 Bert Boyd [facility] DIFFERENTIAL COMPREHENSIVE METABOLIC 2023-02-05 10:52:00 Deb Bert [facility] PANEL MAGNESIUM LEVEL 2023-02-05 10:52:00 Deb Ebrt Sikh Ho spital PHOSPHORUS LEVEL 2023-02-05 10:52:00 Deb Bert [facility] ospital PROCALCITONIN 2023-02-05 10:52:00 Monique Camarillo [facility] TROPONIN T 2023-02-05 10:52:00 Monique Camarillo [facility] LACTIC ACID LEVEL 2023-02-05 10:52:00 Monique Camarillo [facility] ESTIMATED GFR 2023-02-05 10:52:00 [facility] TROPONIN T 2023-02-05 10:42:00 Monique Camarillo [facility] POC GLUCOSE 2023-02-05 04:23:00 [facility] URINE CULTURE 2023-02-05 03:18:00 Gomez, Brett [facility] URINALYSIS SCREEN AND 2023-02-05 03:18:00 [facility], WITH REFLEX TO [place] CULTURE TROPONIN T 2023-02-05 03:16:00 Monique Camarillo [facility] [place] US INSERT PLEURA CATHETER 2023-02-04 22:10:33 [facility] STAIN 2023-02-04 21:45:[address] [facility] AFB CULTURE 2023-02-04 21:45:[address] [facility] AEROBIC CULTURE 2023-02-04 21:45:[address] [facility] ANAEROBIC CULTURE 2023-02-04 21:45:00 [facility] FUNGUS CULTURE 2023-02-04 21:45:[address] [facility] FUNGUS SMEAR 2023-02-04 21:45:[address] [facility] AMYLASE LEVEL, [facility] FLUID 2023-02-04 21:45:00 [facility] GLUCOSE LEVEL, [facility] FLUID 2023-02-04 21:45:00 [facility] LDH, [facility] FLUID 2023-02-04 21:45:[address] [facility] PROTEIN, [facility] FLUID 2023-02-04 21:45:00 [facility] CELL COUNT AND 2023-02-04 21:45:[address] [facility] DIFFERENTIAL, BODY FLUID ALBUMIN, [facility] FLUID 2023-02-04 21:45:00 [facility] CREATININE LEVEL, [facility] 2023-02-04 21:45:00 [facility] FLUID TRIGLYCERIDES, [facility] FLUID 2023-02-04 21:45:00 [facility] BILIRUBIN TOTAL, [facility] 2023-02-04 21:45:00 [facility] FLUID PH, [facility] FLUID 2023-02-04 21:45:[address] [facility] LIPASE LEVEL, [facility] FLUID 2023-02-04 21:45:00 [facility] MYCOPLASMA PNEUMONIAE BY 2023-02-04 21:45:00 [facility] PCR CT ANGIOGRAM PE CHEST 2023-02-04 19:24:58 [facility] [place] RESPIRATORY PATHOGEN PANEL 2023-02-04 18:58:00 [facility] WITH COVID-19 RT-PCR ECG ED PRELIMINARY 2023-02-04 18:23:38 [facility] INTERPRETATION XR CHEST 1 VW PORTABLE 2023-02-04 18:13:50 [facility] CBC WITH PLATELET AND 2023-02-04 18:01:00 [facility] [place] DIFFERENTIAL PROTHROMBIN TIME WITH INR 2023-02-04 18:01:00 [facility] COMPREHENSIVE METABOLIC 2023-02-04 18:01:00 [facility] PANEL ESTIMATED GFR 2023-02-04 18:01:00 [facility] NT-PROBNP 2023-02-04 18:01:00 [facility] TROPONIN T 2023-02-04 18:01:00 [facility] TN CRITICAL CARE 2023-02-04 17:43:54 [facility] ILL/INJURED PATIENT INIT 30-74 MIN ECG 12-LEAD 2023-02-04 17:40:09 [facility] CYTOLOGY 2023-02-04 09:45:00 Hernesto Gonzalez [facility] (NON-GYNECOLOGICAL) Bartolome REQUEST [id number] 2023-01-26 00:00:00 Provider, Not In [facility] ospital System CT HEART SCAN PLUS W 2023-01-01 18:49:10 [facility] PHYSICIAN ORDER US VASCULAR SCREENING 2023-01-01 18:30:00 [facility] VASCULAR SCREENING 2023-01-01 00:00:00 Provider, Not In [facility] HEART SCAN PLUS System Plan of Care Planned Activity Planned Date Details Comments Source Future Scheduled 2023-02-17 Screening for [facility] Test 10:22:06 malignant neoplasm of colon (procedure) [code = 784711953] Future Scheduled 2023-02-17 Screening for [facility] Test 10:22:06 malignant neoplasm of colon (procedure) [code = 131638881] Future Scheduled 2023-02-17 Screening for [facility] Test 10:22:06 malignant neoplasm of colon (procedure) [code = 954030200] Future Scheduled 2023-02-17 65+ PNEUMOCOCCAL [facility] Test 10:22:06 VACCINE (1 - PCV) [code = 65+ PNEUMOCOCCAL VACCINE (1 - PCV)] Future Scheduled 2023-02-17 DIABETES: RETINAL EYE [facility] Test 10:22:06 EXAM [code = DIABETES: RETINAL EYE EXAM] Future Scheduled 2023-02-17 DIABETIC FOOT EXAM [facility] Test 10:22:06 [code = DIABETIC FOOT EXAM] Future Scheduled 2023-02-17 URINE MICROALBUMIN [facility] Test 10:22:06 [code = URINE MICROALBUMIN] Future Scheduled 2023-02-17 Hepatitis C screening [facility] Test 10:22:06 (procedure) [code = 552034852] Future Scheduled 2023-02-17 Screening for [facility] Test 10:22:06 malignant neoplasm of colon (procedure) [code = 182308080] Future Scheduled 2023-02-17 Screening for [facility] Test 10:22:06 malignant neoplasm of colon (procedure) [code = 823742153] Future Scheduled 2023-02-17 SHINGLES VACCINES (1 Met [facility] Test 10:22:06 of 2) [code = SHINGLES VACCINES (1 of 2)] Future Scheduled 2023-02-17 COVID-19 VACCINE (4 - [facility] Test 10:22:06 ) [code = COVID-19 VACCINE (4 - season)] Future Scheduled 2023-02-17 INFLUENZA VACCINE (#1) [facility] Test 10:22:06 [code = INFLUENZA VACCINE (#1)] Future Scheduled 2023-01-30 Screening for [facility] Test 07:17:42 malignant neoplasm of colon (procedure) [code = 309146719] Future Scheduled 2023-01-30 Screening for [facility] Test 07:17:42 malignant neoplasm of colon (procedure) [code = 834383727] Future Scheduled 2023-01-30 Screening for [facility] Test 07:17:42 malignant neoplasm of colon (procedure) [code = 752813547] Future Scheduled 2023-01-30 65+ PNEUMOCOCCAL [facility] Test 07:17:42 VACCINE (1 - PCV) [code = 65+ PNEUMOCOCCAL VACCINE (1 - PCV)] Future Scheduled 2023-01-30 Hepatitis C screening [facility] Test 07:17:42 (procedure) [code = 723515322] Future Scheduled 2023-01-30 Screening for [facility] Test 07:17:42 malignant neoplasm of colon (procedure) [code = 331488840] Future Scheduled 2023-01-30 Screening for [facility] Test 07:17:42 malignant neoplasm of colon (procedure) [code = 520732496] Future Scheduled 2023-01-30 SHINGLES VACCINES (1 Met [facility] Test 07:17:42 of 2) [code = SHINGLES VACCINES (1 of 2)] Future Scheduled 2023-01-30 RSV VACCINES > 60 YR Met [facility] Test 07:17:42 (1 - 1-dose 60+ series) [code = RSV VACCINES > 60 YR (1 - 1-dose 60+ series)] Future Scheduled 2023-01-30 COVID-19 VACCINE (4 - [facility] Test 07:17:42 ) [code = COVID-19 VACCINE ( - season)] Future Scheduled 2023-01-30 INFLUENZA VACCINE (#1) [facility] Test 07:17:42 [code = INFLUENZA VACCINE (#1)] Encounters Start End Encounter Admission Attending Care Care Encounter Source Date/Time Date/Time Type Type Clinicians Facility Department ID 2023-02-16 2023-02-16 Jourdan Mcarthur 1.2.840.1 [id number] Methodi 14:30:00 15:00:[address] 3.430.2.7 Hospit a .3.247734 l .8 2023-02-16 2023-02-16 Outpatient JOURDAN SHELTON [facility] [id number] [place] 00:00:00 00:00:[address] 2023-02-04 2023-02-14 [facility] Brett Gomez [place] 1.2.840.1 [id number] Methodi 12:41:00 15:10:00 Encounter Hernesto Gonzalez 07605.1.[address] Renae Gonzalez 3.430.2.7 spita .3.676256 l .8 2023-02-04 2023-02-14 [facility] RENAE GONZALEZ [facility] [id number] [place] 00:00:00 00:00:[address] 2023-02-13 2023-02-13 Surgery Adam, 1.2.840.1 [id number] Methodi 10:30:00 12:00:[address] 3.430.2.7 Hospit a .3.962375 l .8 2023-02-11 2023-02-11 Documentat Provider, 1.2.840.1 [id number] Methodi 00:00:00 00:00:00 ion Unknown 22096.1.[address] 3.430.2.7 Hospit a .3.756690 l .8 2023-02-08 2023-02-08 Orders Jourdan Shelton 1.2.840.1 [id number] 21 [id number] Methodi 00:00:00 00:00:[address] 3.430.2.7 Hospit a .3.475913 l .8 2023-02-06 2023-02-06 Anesthesia Nadeem 1.2.840.1 [id number] 21 [id number] Methodi 07:30:00 08:54:00 Event Jr Sanchez 25812.1.1 846 s t 3.430.2.7 Hospit a .3.161244 l .8 2023-02-06 2023-02-06 Surgery [facility], 1.2.840.1 [id number] Methodi 07:30:00 08:30:[address] 3.430.2.7 Hospit a .3.790511 l .8 2023-02-06 2023-02-06 Orders Provider, 1.2.840.1 [id number] 2099 [id number] Methodi 00:00:00 00:00:00 Only Not In 91293.1.[address] System 3.430.2.7 Hospit a .3.774847 l .8 2023-02-03 2023-02-03 Telephone Alejo, 1.2.840.1 [id number] 173 [id number] Methodi 00:00:00 00:00:00 Geral[address] LeiHChanning [address] 3.430.2.7 Hospit a .3.023307 l .8 2023-01-08 2023-01-08 Office Dhillon, 1.2.840.1 [id number] 1033 Methodi 08:30:00 09:34:13 Visit Eddevin LeiHChanning 77426.1.[address] 3.430.2.7 Hospit a .3.222897 l .8 2023-01-08 2023-01-08 Office Alejo, 1.2.840.1 [id number] 3005 Methodi 08:30:00 09:34:13 Visit Eddevin LeiHChanning 99820.1.[address] 3.430.2.7 Hospit a .3.826268 l .8 2023-01-08 2023-01-08 Telephone Alejo, 1.2.840.1 [id number] 2099 [id number] Methodi 00:00:00 00:00:00 Geraldo LeiHChanning [address] 3.430.2.7 Hospit a .3.929969 l .8 2023-01-08 2023-01-08 Telephone Dhillon, 1.2.840.1 [id number] 2099 [id number] Methodi 00:00:00 00:00:00 [address]on [address] 3.430.2.7 Hospit a .3.868452 l .8 2023-01-02 2023-01-02 Telephone Ramirez, 1.2.840.1 [id number] 2099 [id number] Methodi 00:00:00 00:00:[address] 3.430.2.7 Hospit a .3.896223 l .8 2023-01-02 2023-01-02 Orders Provider, 1.2.840.1 [id number] 2099 [id number] Methodi 00:00:00 00:00:00 Only Not In 57461.1.[address] System 3.430.2.7 Hospit a .3.074634 l .8 2023-01-02 2023-01-02 Telephone Ramirez, 1.2.840.1 [id number] 2099 [id number] Methodi 00:00:00 00:00:[address] 3.430.2.7 Hospit a .3.811159 l .8 2023-01-02 2023-01-02 Orders Provider, 1.2.840.1 [id number] 2099 [id number] Methodi 00:00:00 00:00:00 Only Not In 07091.1.[address] System 3.430.2.7 Hospit a .3.489590 l .8 2023-01-01 2023-01-01 [facility] 1.2.840.1 [id number] 63672 Methodi 12:31:07 23:59:00 Encounter Mona 35505.1.[address] 3.430.2.7 Hospit a .3.021411 l .8 2023-01-01 2023-01-01 [facility], 1.2.840.1 [id number] 11233 Methodi 12:31:00 12:31:00 Encounter Mona 81145.1.[address] 3.430.2.7 Hospit a .3.816276 l .8 2023-01-01 2023-01-01 [facility], 1.2.840.1 [id number] [place] 00:00:00 00:00:00 Encounter MONA 92683.1.1 [address] .3.497862 .8 2023-01-01 2023-01-01 [facility], 1.2.840.1 [id number] [place] 00:00:00 00:00:00 Encounter MONA 21564.1.1 [address] .3.506252 .8 2022-12-24 2022-12-24 Transcribe [facility], 1.2.840.1 [id number] Methodi 00:00:00 00:00:00 Orders Mona [address]215.1.[address] 3.430.2.7 Hospit a .3.998915 l .8 2022-12-24 2022-12-24 Transcribe [facility], 1.2.840.1 [id number] [id number] Methodi 00:00:00 00:00:00 Orders Mona 01757.1.[address] 3.430.2.7 Hospit a .3.083464 l .8 Results Test Description Test Time Test Comments Results Result Comments Source POC glucose 2023-02-14 17:52:00 Test Item Value Reference Range Interpretation Comme nts POC glucose (test code = 153 mg/dL 65-99 H Ope rator Name: Junaito Pina [id number]) ID: [id number] hartable: [facility] Notified assigner Interpretation (test code = Abnormal 13010-6) [facility] [id number] 12:31:00 Test Item Value Reference Interpretation Comments Range Legionella No Legionella Specimen culture isolate isolated. InformationS pecimen (test code = Source: Bronchi al 1656) WashingSpecimen Site: RUL (Right Uppe r Lobe) RML (Right Midd le Lobe) RLL (Right Lowe r Lobe) [facility] [id number] 13:17:33 Test Item Value Reference Range Interpretation Comments Ventricular rate (test 86 code = 253) Atrial rate (test code 86 = 255) TN interval (test code 176 = 266) QRSD interval (test 100 code = 260) QT interval (test code 384 = 264) QTC interval (test code 459 = 265) P axis 1 (test code = 28 267) QRS axis 1 (test code = -45 268) T wave axis (test code 40 = 270) EKG impression (test Normal sinus code = 273) rhythm-Possible Left atrial enlargement-Left anterior fascicular block-Abnormal ECG-In automated comparison with ECG of 12-FEB-2023 19:22,-Vent. rate has decreased BY 57 BPM- [facility] Clinic[facility]ocardia [id number] 12:32:00 Test Item Value Reference Range Interpretation Comments Nocardia No Nocardia Specimen culture isolate isolated after Informatio nSpecimen (test code = 7 days. Source: Bronchi al 1807) WashingSpecimen Site: RUL (Right Upper Lo be) RML (Right Middle L obe) RLL (Right Lower Lo be) [facility] Clinic[facility] [id number] 04:19:00 Test Item Value Reference Range Interpretation Comments Urine culture (test SEE COMMENT Bacteriu cristiane screen code = 0858593) negative. [facility] [id number] 15:30:31 Test Item Value Reference Range Interpretation Comments Case number (test [id number] code = 3259509) Surgical pathology See link below for PDF report (test code = Lab Report 2255) Result status (test This is Supplemental code = 9191051) Report for [id number] [facility] (non-gynecological) [id number] 14:26:26 Test Item Value Reference Range Interpretation Comments Case number (test code = [id number]) Cytology See link below for (non-gynecological) PDF Lab Report report (test code = 1178) Result status (test code This is Final Report = [id number]) for [id number] [facility] Clinic[facility] [id number] 08:24:00 Test Item Value Reference Range Interpretation Comments Respiratory Normal oral Specimen culture isolate edel InformationS pecimen (test code = isolated. Source: Bronchi al 55787-6) WashingSpecimen Site: RUL (Right Upper Lo be) RML (Right Middle L obe) RLL (Right Lower Lo be) [facility] ClinicFungus [id number] 20:09:00 Test Item Value Reference Range Interpretation Comments Fungus smear No fungi Specimen (test code = observed. InformationSpec imen Source: 1443) Bronchial Washi ngSpecimen Site: RUL (Righ t Upper Lobe) RML (Righ t Middle Lobe) RLL (Righ t Lower Lobe) [facility] ClinicAFB [id number] 16:06:00 Test Item Value Reference Range Interpretation Comments AFB stain No acid fast Specimen (test code = bacilli (AFB) InformationSpe [facility] 676-7) seen. Source: Bronchi al WashingSpecimen Site: RUL (Right Upper Lo be) RML (Right Middle L obe) RLL (Right Lower Lo be) [facility] ClinicGram [id number] 03:56:00 Test Item Value Reference Range Interpretation Comments Gram stain No organisms Specimen isolate (test seen [facility]Spe [facility] code = 1469) Source: Bronchi al WashingSpecimen Site: RUL (Right Upper Lo be) RML (Right Middle L obe) RLL (Right Lower Lo be) [facility] Clinic[facility] pathogen panel with COVID-19 [id number] 21:26:00 Test Item Value Reference Interpretation Comments Range Adenovirus PCR (test Not Detected Specime n code = 7092) InformationSpec imen Source: Bronchi al WashingSpecimen Site: RUL (Right Uppe r Lobe) RML (Right Midd le Lobe) RLL (Right Lowe r Lobe) Coronavirus HKU1 PCR Not Detected (test code = 7093) Coronavirus NL63 PCR Not Detected (test code = 7094) Coronavirus 229E PCR Not Detected (test code = 7095) Coronavirus OC43 PCR Not Detected (test code = 7096) Human Not Detected metapneumovirus PCR (test code = 7097) Human Not Detected rhinovirus/enterovir us PCR (test code = 7098) Influenza A PCR Not Detected (test code = 23029-0) Influenza A/H1 PCR Not reported (test code = 7100) Influenza A/H3 PCR Not reported (test code = 7102) Influenza A/H1-2009 Not Reported PCR (test code = 7101) Respiratory Not Detected syncytial virus PCR (test code = 19695-2) Parainfluenza virus Not Detected 1 PCR (test code = 7105) Parainfluenza virus Not Detected 2 PCR (test code = 7106) Parainfluenza virus Not Detected 3 PCR (test code = 7107) Parainfluenza virus Not Detected 4 PCR (test code = 7108) Bordetella pertussis Not Detected PCR (test code = 2125134) Bordetella Not Detected parapertussis PCR (test code = 8766364) Chlamydia pneumoniae Not Detected PCR (test code = 3753) Mycoplasma Not Detected pneumoniae PCR (test code = 7110) COVID-19 qualitative Not Detected RT-PCR result (test code = 66259-2) [facility] ED Preliminary Interpretation - Not an [id number] 18:23:38 Test Item Value Reference Range Interpretation Comments ZOILA (test code = ZOILA) Brett Gomez MD 02/06/2023 7:31 [facility] ED Preliminary Interpretation - Not an Order Date/Time: 02/04/2023 1:23 PM Performed by: Brett Gomez [facility] CENTERuthorized by: Brett Gomez MD Interpretation: Interpretation: abnormal Rate: ECG rate: 99 ECG rate assessment: normal Rhythm: Rhythm: sinus rhythm Ectopy: Ectopy: none QRS: QRS axis: Normal QRS intervals: Normal QRS conduction: normal ST segments: ST segments: NormalT waves: T waves: normal Q waves: Abnormal Q-waves: not present Other findings: Other findings: LAE and prolonged qTc interval Other findings comment: Possible LAEComments: LAFB Lab Interpretation Abnormal (test code = 70426-0) [facility]
[2023-02-17] MEDS ORDERED: METOPROLOL TAR 25 MG TAB ONE (20:45)
[2023-02-17] MEDS ORDERED: NA CHLORIDE 0.9% 500 ML ONE (20:45)
[2023-02-17] MEDS ORDERED: MAGNESIUM SULFATE 1 gm IVPB 1 GM/100 ML BAG IV ONE (20:45)
[2023-02-17 21:00] LABS: Absolute Lymphocytes (CBC) 1.7 K/uL (0.7-4.9); Hematocrit 31.5 % (39.6-49.0); Lymphocytes % 19.5 % (15.3-44.8); MCV 83.9 fL (80-100); MPV 6.7 fL (7.6-11.3); Platelets 170 thou/uL (152-406); RBC Red Blood Cell Count 3.76 M/uL (4.33-5.43)
[2023-02-17 21:01] LABS: Protime INR 1.19
[2023-02-17 21:15] LABS: Albumin 2.4 g/dL (3.4-5.0); Bilirubin Direct 0.1 mg/dL (0-0.2); Bilirubin Indirect, Calculated 0.2 mg/dL (0.2-0.8); Bilirubin Total 0.3 mg/dL (0.2-1.0); Magnesium 1.7 mg/dL (1.6-2.4); Potassium 3.7 mEq/L (3.5-5.1); Protein, Total 5.6 g/dL (6.4-8.2); Troponin High Sensitivity 30.4 pg/mL (<58.9)
--- NOTE | 2023-02-17 21:21 | RAD REPORT ---
EXAM DESCRIPTION: RAD - Chest Single View - 02/17/2023 9:02 pm CLINICAL HISTORY: CHEST PAIN Chest pain. COMPARISON: No comparisons FINDINGS: Portable technique limits examination quality. The left lung appears grossly clear. Haziness involving the right upper lobe as well as the right low er hemithorax likely related to loculated right pleural effusion. The heart is moderately enlarged. L eft-sided port catheter has tip in the SVC.
--- NOTE | 2023-02-17 21:25 | ER ---
Nurse's Notes [facility] Name: Igor Vargas Age: 72 yrs Sex: Male : 1950 Arrival Date: 02/17/2023 Time: 20:10 Bed 19 Private MD: Diagnosis: Supraventricular tachycardia;Tachycardia, unspecified;Malignant neoplasm of upper lobe, right bronchus or lung Presentation: 02/17 20:17 Chief complaint: Patient states: WAS DX WITH LUNG CANCER 1 MONTH AGO. WAS HAVING CHEMO jj7 LAST WEEK AND WENT INTO SVT AT [facility]. STATES THEY GAVE HIM 2 DOSES OF A MEDICATION THAT "FIXED" IT. DOESN'T KNOW WHAT THE MEDICATION WAS. EMS states: PT HAVING TACHYCARDIA, HEART PALPITATIONS AND DIZZINESS. WHEN THEY ARRIVED PT WAS IN SVT AT 175. GIVEN ADENOSINE 12MG AND CONVERTED BACK TO NSR. Coronavirus screen: At this time, the client does not indicate any symptoms associated with coronavirus-19. Ebola Screen: No symptoms or risks identified at this time. Initial Sepsis Screen: Does the patient meet any 2 criteria? HR > 90 bpm. Does the patient have a suspected source of infection? No. Patient's initial sepsis screen is negative. Risk Assessment: Do you want to hurt yourself or someone else? Patient reports no desire to harm self or others. Onset of symptoms was February 17, 2023. 20:17 Method Of Arrival: EMS: [facility] jj7 20:17 Acuity: LORETTA 3 jj7 Triage Assessment: 20:25 General: Appears in no apparent distress. comfortable, Behavior is calm, cooperative, jj7 appropriate for age. Pain: Denies pain. Cardiovascular: Rhythm is sinus tachycardia Chest pain is denied. Historical: - Allergies: 20:25 No Known Allergies; jj7 - PMHx: 20:25 diabetes mellitus; Hypercholesterolemia; Hypertensive disorder; LUNG CANCER jj7 (Hypertensive disorder); - PSHx: 20:25 THORACENTESIS (Hypertensive disorder); jj7 - Immunization history:: Adult Immunizations up to date. - Family history:: not pertinent. - Social history:: Smoking status: Patient denies any tobacco usage or history of. Screenin:29 Abuse screen: Denies threats or abuse. Nutritional screening: No deficits noted. jj7 Tuberculosis screening: No symptoms or risk factors identified. 22:02 [facility] ED Fall Risk Assessment (Adult) Score/Fall Risk Level 0 - 2 = Low Risk. as6 Assessment: 20:29 Reassessment: SEE TRIAGE ASSESSMENT. [facility] Vital Signs: 20:17 BP 133 / 65; Pulse 108; Resp 20; Temp 98.7; Pulse Ox 100% ; Weight 94.8 kg; Height 5 j7 ft. 8 in. ; Pain 0/10; 21:30 BP 134 / 70; Pulse 87; Resp 21 S; Pulse Ox 99% on R/A; as6 20:17 Body Mass Index 31.78 (94.80 kg, 172.72 cm) jj7 20:17 Pain Scale: Adult [facility] ED Course: 20:12 Patient arrived in ED. rv1 20:13 Papo Muhammad MD is Attending Physician. darlene 20:14 Yousif Andersen, LOC is Primary Nurse. as6 20:25 Triage completed. j7 20:25 Arm band placed on right wrist. jj7 20:29 Patient has correct armband on for positive identification. Bed in low position. Call [facility] light in reach. Side rails up X2. Adult w/ patient. Warm blanket given. 20:29 Maintain EMS IV. Dressing intact. Good blood return noted. Site clean \\T\\ dry. Gauge \\T\\ jj 7 site: 20G RIGHT HAND. 21:03 XRAY Chest (1 view) In Process Unspecified. EDMS 22:02 Provided Education on: follow up. as6 22:02 No provider procedures requiring assistance completed. IV discontinued, intact, as6 bleeding controlled, No redness/swelling at site. Pressure dressing applied. Administered Medications: 20:44 Drug: Magnesium Sulfate IVPB 1 grams IVPB once over 1 hrs Route: IVPB; Infused Over: 1 as6 hrs; Site: right hand; 22:03 Follow up: Response: No adverse reaction; IV Status: Completed infusion; IV Intake: as6 100ml 20:44 Drug: Metoprolol PO 25 mg PO once Route: PO; as6 22:03 Follow up: Response: No adverse reaction as6 20:45 Drug: NS 0.9% IV 500 ml IV at bolus once Route: IV; Rate: bolus; Site: right hand; as6 22:03 Follow up: Response: No adverse reaction; IV Status: Completed infusion; IV Intake: as6 500ml Medication: 20:29 VIS not applicable for this client. jj7 Intake: 22:03 IV: 100ml; Total: 100ml. as6 22:03 IV: 500ml; Total: 600ml. as6 Outcome: 21:25 Discharge ordered by . darlene 21:47 Patient left the ED. as6 22:02 Discharged to home ambulatory, with significant other, as6 22:02 Condition: stable 22:02 Discharge instructions given to patient, significant other, Instructed on discharge instructions, follow up and referral plans. medication usage, Demonstrated understanding of instructions, follow-up care, medications, Prescriptions given X 1, Signatures: Dispatcher [employer] EDME Papo Muhammad MD MD cha Slawson, Ashby, RN RN as6 Mandi Griffin RN RN jj7 Azeb [facility]
--- NOTE | 2023-02-17 21:25 | EDPHYS ---
Physician Documentation [facility] Name: Igor Vargas Age: 72 yrs Sex: Male : 1950 Arrival Date: 02/17/2023 Time: 20:10 Bed 19 Private MD: ED Physician Papo Muhammad HPI: 02/17 20:20 This 72 yrs old Male presents to ER via Unassigned with complaints of svt darlene converted with 6 mg adenosine. 20:20 The patient presents with a history of heart racing. Context: The symptoms occur with darlene light activity. Onset: The symptoms/episode began/occurred 2 day(s) ago. Modifying factors: The symptoms are aggravated by nothing. The symptoms are alleviated by nothing. Severity of symptoms: At their worst the symptoms were mild moderate in the emergency department the symptoms have improved moderately. The patient has experienced a previous episode, last week. Historical: - Allergies: 20:25 No Known Allergies; jj7 - PMHx: 20:25 diabetes mellitus; Hypercholesterolemia; Hypertensive disorder; LUNG CANCER jj7 (Hypertensive disorder); - PSHx: 20:25 THORACENTESIS (Hypertensive disorder); jj7 - Immunization history:: Adult Immunizations up to date. - Family history:: not pertinent. - Social history:: Smoking status: Patient denies any tobacco usage or history of. ROS: 20:22 Constitutional: Negative for fever, chills, and weight loss, Eyes: Negative for injury, darlene pain, redness, and discharge, ENT: Negative for injury, pain, and discharge, Neck: Negative for injury, pain, and swelling, Respiratory: Negative for shortness of breath, cough, wheezing, and pleuritic chest pain, Abdomen/GI: Negative for abdominal pain, nausea, vomiting, diarrhea, and constipation, Back: Negative for injury and pain, : Negative for injury, bleeding, discharge, and swelling, MS/Extremity: Negative for injury and deformity, Skin: Negative for injury, rash, and discoloration, Neuro: Negative for headache, weakness, numbness, tingling, and seizure, Psych: Negative for depression, anxiety, suicide ideation, homicidal ideation, and hallucinations, Allergy/Immunology: Negative for hives, rash, and allergies, Endocrine: Negative for neck swelling, polydipsia, polyuria, polyphagia, and marked weight changes, Hematologic/Lymphatic: Negative for swollen nodes, abnormal bleeding, and unusual bruising, 20:22 Cardiovascular: Positive for palpitations, Exam: 20:22 Constitutional: This is a well developed, well nourished patient who is awake, alert, darlene and in no acute distress. Head/Face: Normocephalic, atraumatic. Eyes: Pupils equal round and reactive to light, extra-ocular motions intact. Lids and lashes normal. Conjunctiva and sclera are non-icteric and not injected. Cornea within normal limits. Periorbital areas with no swelling, redness, or edema. ENT: Nares patent. No nasal discharge, no septal abnormalities noted. Tympanic membranes are normal and external auditory canals are clear. Oropharynx with no redness, swelling, or masses, exudates, or evidence of obstruction, uvula midline. Mucous membranes moist. Neck: Trachea midline, no thyromegaly or masses palpated, and no cervical lymphadenopathy. Supple, full range of motion without nuchal rigidity, or vertebral point tenderness. No Meningismus. Chest/axilla: Normal chest wall appearance and motion. Nontender with no deformity. No lesions are appreciated. Cardiovascular: Regular rate and rhythm with a normal S1 and S2. No gallops, murmurs, or rubs. Normal PMI, no JVD. No pulse deficits. Respiratory: Lungs have equal breath sounds bilaterally, clear to auscultation and percussion. No rales, rhonchi or wheezes noted. No increased work of breathing, no retractions or nasal flaring. Abdomen/GI: Soft, non-tender, with normal bowel sounds. No distension or tympany. No guarding or rebound. No evidence of tenderness throughout. Back: No spinal tenderness. No costovertebral tenderness. Full range of motion. Male : Normal genitalia with no discharge or lesions. Skin: Warm, dry with normal turgor. Normal color with no rashes, no lesions, and no evidence of cellulitis. MS/ Extremity: Pulses equal, no cyanosis. Neurovascular intact. Full, normal range of motion. Neuro: Awake and alert, GCS 15, oriented to person, place, time, and situation. Cranial nerves II-XII grossly intact. Motor strength 5/5 in all extremities. Sensory grossly intact. Cerebellar exam normal. Normal gait. Psych: Awake, alert, with orientation to person, place and time. Behavior, mood, and affect are within normal limits. 21:40 ECG was reviewed by the Attending Physician. [facility] Vital Signs: 20:17 BP 133 / 65; Pulse 108; Resp 20; Temp 98.7; Pulse Ox 100% ; Weight 94.8 kg; Height 5 jj7 ft. 8 in. ; Pain 0/10; 21:30 BP 134 / 70; Pulse 87; Resp 21 S; Pulse Ox 99% on R/A; as6 20:17 Body Mass Index 31.78 (94.80 kg, 172.72 cm) [facility] 20:17 Pain Scale: Adult j7 MDM: 20:13 Patient medically screened. [facility] 20:23 Differential diagnosis: arrythmia, dehydration. Data reviewed: vital signs, nurses [facility] notes, lab test result(s), EKG, radiologic studies, plain films. Consideration of Admission/Observation Escalation of care including admission/observation considered. I considered the following discharge prescriptions or medication management in the emergency department Medications were administered in the Emergency Department. See MAR. Independent interpretation of the following test(s) in the Emergency Department EKG: See my EKG interpretation above. Test considered but Not performed: Ultrasound no 2 d echo. Care significantly affected by the following chronic conditions: Hypertension, Cancer. Counseling: I had a detailed discussion with the patient and/or guardian regarding the historical points, exam findings, and any diagnostic results supporting the discharge/admit diagnosis, lab results, radiology results, the need for outpatient follow up, for definitive care, a pedicurist, a family practitioner. 02/17 20:18 Order name: Basic Metabolic Panel; Complete Time: :23 [facility] 02/17 20:18 Order name: CBC with Diff; Complete Time: 21:23 [facility] 02/17 20:18 Order name: LFT's; Complete Time: 21:23 [facility] 02/17 20:18 Order name: Magnesium; Complete Time: 21:23 [facility] 02/17 20:18 Order name: NT PRO-BNP; Complete Time: 21:23 [facility] 02/17 20:18 Order name: PT-INR; Complete Time: 21:23 [facility] 02/17 20:18 Order name: Troponin HS; Complete Time: 21:23 [facility] 02/17 20:18 Order name: Lipase; Complete Time: 21:23 [facility] 02/17 20:18 Order name: XRAY Chest (1 view); Complete Time: 21:23 [facility] 02/17 20:18 Order name: EKG; Complete Time: 20: [facility] 02/17 20:18 Order name: Cardiac monitoring; Complete Time: 20:25 [facility] 02/17 20:18 Order name: EKG - Nurse/Tech; Complete Time: 20:45 [facility] 02/17 20:18 Order name: IV Saline Lock; Complete Time: 20:45 [facility] 02/17 20:18 Order name: Labs collected and sent; Complete Time: 20:45 [facility] 02/17 20:18 Order name: O2 Per Protocol; Complete Time: 20:25 [facility] 02/17 20:18 Order name: O2 Sat Monitoring; Complete Time: 20:25 [facility] EC:40 Rate is 99 beats/min. Rhythm is regular. QRS [place] is Normal. [place] interval is normal. QRS darlene interval is normal. QT interval is prolonged at 487 msec. No Q waves. T waves are Normal. No ST changes noted. Clinical impression: Sinus tachycardia and No evidence of ischemia. Administered Medications: 20:44 Drug: Magnesium Sulfate IVPB 1 grams IVPB once over 1 hrs Route: IVPB; Infused Over: 1 as6 hrs; Site: right hand; 22:03 Follow up: Response: No adverse reaction; IV Status: Completed infusion; IV Intake: as6 100ml 20:44 Drug: Metoprolol PO 25 mg PO once Route: PO; as6 22:03 Follow up: Response: No adverse reaction as6 20:45 Drug: NS 0.9% IV 500 ml IV at bolus once Route: IV; Rate: bolus; Site: right hand; as6 22:03 Follow up: Response: No adverse reaction; IV Status: Completed infusion; IV Intake: as6 500ml Disposition Summary: 02/17/23 21:25 Discharge Ordered Notes: Location: Home darlene Problem: new darlene Symptoms: have improved darlene Condition: Stable darlene Diagnosis - Supraventricular tachycardia darlene - Tachycardia, unspecified darlene - Malignant neoplasm of upper lobe, right bronchus or lung darlene Followup: darlene - With: Private Physician - When: 2 - 3 days - Reason: Recheck today's complaints, Continuance of care, Re-evaluation by your physician Discharge Instructions: - Discharge Summary Sheet darlene - Supraventricular Tachycardia, Adult darlene - Supraventricular Tachycardia, Adult, [id number] darlene - Sinus Tachycardia darlene Forms: - Medication Reconciliation Form darlene - Thank You Letter darlene - Antibiotic Education darlene - Prescription Opioid Use darlene - Patient Portal Instructions darlene - Leadership Thank You Letter darlene Prescriptions: - metoprolol tartrate 25 mg Oral tablet - take 1 tablet ORAL route every 12 hours; 30 tablet; Refills: 0, Product darlene Selection Permitted Signatures: Dispatcher [employer] Papo Deras MD MD cha Slawson, Ash[place], RN RN as6 Mandi Griffin RN RN jj7
[2023-02-17 22:00] VITALS: BP 133/65; TEMP 98.7; O2SAT 100
--- NOTE | 2023-02-21 14:24 | EKG ---
Test Date: 2023-02-17 Test Time: 20:35:01 Fashion Marketer: MEASUREMENT RESULTS: Intervals: Rate: 99 RI: 180 QRSD: 102 QT: 380 QTc: 487 [place]: P: 35 RI: 180 QRS: -43 T: 52 INTERPRETIVE STATEMENTS: Normal sinus rhythm Possible Left atrial enlargement Left axis deviation Prolonged QT Abnormal ECG Compared to ECG 02/02/2023 10:45:06 ST (T wave) deviation no longer present Electronically Signed On 02-21-23 14:13:37 PRESENTATION MANAGER by Vinicius Pierre
== END 2023-02-17 21:47 | disposition home or self-care (01) ==
LOC: ER 20:10
DX: R00.0 Tachycardia, unspecified (principal); C34.11 Malignant neoplasm of upper lobe, right bronchus or lung; E11.9 Type 2 diabetes mellitus without complications; I10 Essential (primary) hypertension
CPT/HCPCS: 96365; 93005; 85025; 80048; 36415; 83735; 85610; 80076; 84484; 83690; 83880; 71045; 99284; J3475; J7040